=== PATIENT | female | born 1990 | race Caucasian/White ===

== ENCOUNTER 2017-03-02 10:53 | Emergency (ER) | payer OTHER ==
[2017-03-02 12:25] LABS: % IMMATURE GRANULYOCYTES 0.3 % (0.0-1.1); ABSOLUTE IMMATURE GRANULOCYTES 0.01 10^3/uL (0.00-0.10); ADD DIFF? NO; ADD MORPH? NO; ADD SCAN? NO; ATYPICAL LYMPHOCYTE FLAG 10 (0-99); FRAGMENT RBC FLAG 0 (0-99); HEMATOCRIT 42.7 % (38.0-47.0); HEMOGLOBIN 14.4 g/dL (12.6-16.3); LEFT SHIFT FLG 0 (0-99); LIPEMIA HEMOLYSIS FLAG 80 (0-99); MEAN CELL HEMOGLOBIN 29.4 pg (27.9-34.1); MEAN CELL HEMOGLOBIN CONCENTR. 33.7 g/dL (32.4-36.7); MEAN CELL VOLUME 87.3 fL (81.5-99.8); MEAN PLATELET VOLUME 12.5 fL (8.7-11.7); PLATELET CLUMPS FLAG 10 (0-99); PLATELET COUNT 61 10^3/uL (150-400); RED BLOOD CELL COUNT 4.89 10^6/uL (4.18-5.33); RED CELL DISTRIBUTION WIDTH 13.2 % (11.5-15.2)
[2017-03-02 12:31] LABS: ANION GAP 11 mEq/L (8-16); CALCIUM 9.5 mg/dL (8.5-10.4); CARBON DIOXIDE 25 mEq/l (22-31); CHLORIDE 102 mEq/L (97-110); CREATININE 0.8 mg/dL (0.6-1.0); GLOMERULAR FILTRATION RATE > 60; GLUCOSE 91 mg/dL (70-100); SODIUM 138 mEq/L (134-144)
[2017-03-02] MEDS ORDERED: ONDANSETRON 4 MG/2 ML VIAL IVP ONE (13:48)
[2017-03-02] MEDS ORDERED: NS 1,000 ML IV ONE ×2 (13:48→14:04)
[2017-03-02 14:53] VITALS: RESP 16; O2SAT 97
--- NOTE | 2017-03-02 15:06 | EDPHY ---
H & P Time Seen by Provider: 03/02/17 12:58 HPI/ROS: CHIEF COMPLAINT: Nausea, weakness HISTORY OF PRESENT ILLNESS: 26-year-old female presents to the emergency department by private vehicle feeling very nauseous and feeling weak. She has a history of idiopathic thrombocytopenia and is followed by a putty mixer and applier in [facility] where she is from. She recently moved to [place] and has been followed by a naturopathic doctor. She states that she has had cold symptoms including sore throat, ear congestion, nasal congestion and occasional cough intermittently for the last several weeks. She is and her has no symptoms. No fevers or chills. She saw her naturopathic [place] [id number]. She denies abdominal pain. Denies urinary symptoms. Denies chest pain or difficulty breathing. Denies headache. No reported trauma. The patient also has a history of chronic diarrhea for the last 1 year. She has seen numerous integrity manager for this and has had ongoing testing. She states that it tends to eb and flow and now currently she has more soft, formed stools. REVIEW OF SYSTEMS: Constitutional: No fever, no chills. Eyes: No double or blurry vision. ENT: No sore throat. Respiratory: No cough, no shortness of breath. Cardiac: No chest pain. Gastrointestinal: Nausea. No abdominal pain, vomiting or diarrhea. Genitourinary: No dysuria. Musculoskeletal: No neck or back pain. Skin: No rashes. Neurological: No headache. 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 Vital signs are stable. Eyes: Pupils equal and round. Extraocular motions are all intact. ENT: Mouth: Mucous membranes moist. Respiratory: No wheezing, rhonchi, or rales, lungs are clear to auscultation. Cardiovascular: Regular rate and rhythm. Gastrointestinal: Abdomen is soft and nontender, no masses, no rebound or guarding, bowel sounds normal. Neurological: Alert and oriented x 3, cranial nerves II through XII grossly intact Skin: Warm and dry, no rashes. Musculoskeletal: Nontender to palpate along the cervical, thoracic or lumbar spine. Neck is supple. Extremities: Full range of motion and no peripheral edema. Psychiatric: Patient is oriented X 3, there is no agitation. Constitutional: Initial Vital Signs Temperature (C) 36.9 C 03/02/17 10:55 Heart Rate 55 L 03/02/17 10:55 Respiratory Rate 18 03/02/17 10:55 Blood Pressure 111/76 03/02/17 10:55 O2 Sat (%) 100 03/02/17 10:55 O2 Delivery Mode Room Air Allergies/Adverse Reactions: No Known Allergies Allergy (Verified 03/02/17 10:54) Medical Decision Making ED Course/Re-evaluation: 26-year-old female presents to the emergency department with weakness. Laboratory studies are unremarkable with the exception of her platelet count being 61,000. A week ago this was 90,000. I spoke with Dr. Danae Colbert, putty mixer and applier on-call, who did not recommend any treatment and less her platelet count dropped below 30,000. She will see her either tomorrow or Tuesday this week to recheck. Patient was comfortable with this plan. The patient was given 2 L of IV normal saline as well as IV Zofran. She was feeling much better. She is comfortable being discharged home. The case was discussed with Dr. Luis Rizzo, secondary supervising physician, who did not directly evaluate the patient but agrees with treatment and plan. Differential Diagnosis: Weakness including but not limited to electrolyte abnormality, depression, anxiety, CVA, spinal cord abnormality, and infectious causes. - Data Points Laboratory Results: Laboratory Results 03/02/17 12:05 03/02/17 12:05 03/02/17 03/02/17 03/02/17 12:05 12:05 12:05 WBC 3.89 10^3/uL 10^3/uL (3.80-9.50) RBC 4.89 10^6/uL 10^6/uL (4.18-5.33) Hgb 14.4 g/dL g/dL (12.6-16.3) Hct 42.7 % % (38.0-47.0) MCV 87.3 fL fL (81.5-99.8) MCH 29.4 pg pg (27.9-34.1) MCHC 33.7 g/dL g/dL (32.4-36.7) RDW 13.2 % % (11.5-15.2) Plt Count 61 10^3/uL L 10^3/uL (150-400) MPV 12.5 fL H fL (8.7-11.7) Neut % (Auto) 61.9 % % (39.3-74.2) Lymph % (Auto) 24.2 % % (15.0-45.0) Atkinson % (Auto) 8.2 % % (4.5-13.0) Eos % (Auto) 4.1 % % (0.6-7.6) Baso % (Auto) 1.3 % % (0.3-1.7) Nucleat RBC Rel Count 0.0 % % (0.0-0.2) Absolute Neuts (auto) 2.41 10^3/uL 10^3/uL (1.70-6.50) Absolute Lymphs (auto) 0.94 10^3/uL L 10^3/uL (1.00-3.00) Absolute Monos (auto) 0.32 10^3/uL 10^3/uL (0.30-0.80) Absolute Eos (auto) 0.16 10^3/uL 10^3/uL (0.03-0.40) Absolute Basos (auto) 0.05 10^3/uL 10^3/uL (0.02-0.10) Absolute Nucleated RBC 0.00 10^3/uL 10^3/uL (0-0.01) Immature Gran % 0.3 % % (0.0-1.1) Immature Gran # 0.01 10^3/uL 10^3/uL (0.00-0.10) Sodium 138 mEq/L mEq/L (134-144) Potassium 4.0 mEq/L mEq/L (3.5-5.2) Chloride 102 mEq/L mEq/L (97-110) Carbon Dioxide 25 mEq/l mEq/l (22-31) Anion Gap 11 mEq/L mEq/L (8-16) BUN 20 mg/dL mg/dL (7-23) Creatinine 0.8 mg/dL mg/dL (0.6-1.0) Estimated GFR > 60 Glucose 91 mg/dL mg/dL (70-100) Calcium 9.5 mg/dL mg/dL (8.5-10.4) Beta HCG, Qual NEGATIVE Medications Given: Discontinued Medications Sodium Chloride (Ns) 1,000 mls @ 0 mls/hr IV ONCE ONE PRN Reason: Wide Open Stop: 03/02/17 13:49 Last Admin: 03/02/17 12:30 Dose: 1,000 mls Sodium Chloride (Ns) 1,000 mls @ 0 mls/hr IV ONCE ONE; Wide Open PRN Reason: Protocol Stop: 03/02/17 14:05 Last Admin: 03/02/17 14:08 Dose: 1,000 mls Ondansetron HCl (Zofran) 4 mg IVP EDNOW ONE Stop: 03/02/17 13:49 Last Admin: 03/02/17 14:02 Dose: 4 mg Departure - Departure Disposition: Home, Routine, Self-Care Clinical Impression: Thrombocytopenia, Dehydration, Chronic diarrhea Condition: Good Instructions: Dehydration (ED), Chronic Diarrhea (ED), Thrombocytopenia (ED) Additional Instructions: Follow-up with putty mixer and applier tomorrow or Tuesday as discussed. Tylenol 1000 mg every 4-6 hours as needed for pain. Return to the emergency department if you develop a fever, shortness of breath, increasing pain, or if you feel worse in any way. Referrals: Danae Colbert MD [Medical Doctor] - As per Instructions (Diabetes Trainer. Someone from their office will call you to arrange for a follow-up appointment tomorrow or Tuesday.)
[2017-03-02 15:18] VITALS: BP 104/68; PULSE 68; TEMP 97.9
== END 2017-03-02 15:19 | disposition home or self-care (01) ==
DX: D69.6 Thrombocytopenia, unspecified (principal); E86.0 Dehydration; K52.9 Noninfective gastroenteritis and colitis, unspecified
CPT/HCPCS: 96374; J2405